=== PATIENT | female | born 1990 | race Asian ===

== ENCOUNTER 2022-09-18 09:34 | Emergency (ER) | payer BC, OTHER ==
[~2022-09-18] VITALS: Ht 167.6 cm; Wt 61.7 kg
--- NOTE | 2022-09-18 09:45 | NUR ---
DR Zayas at the bedside for MSE.
[2022-09-18] MEDS ORDERED: DEXAMETHASONE SOD PHOSPHATE 4 MG INJ IM ONE (10:00)
[2022-09-18] MEDS ORDERED: KETOROLAC TROMETHAMINE 15 MG INJ IM ONE (10:00)
[2022-09-18 10:18] LABS: *URINE HCG, QUAL NEGATIVE (NEGATIVE)
[2022-09-18] MEDS ORDERED: DEXAMETHASONE SOD PHOSPHATE 10 MG INJ ONE (10:22)
[2022-09-18] MEDS ORDERED: KETOROLAC TROMETHAMINE 15 MG INJ ONE (10:22)
[2022-09-18] MEDS ORDERED: AMOX500C2 PO (10:29)
[2022-09-18 10:37] VITALS: BP 113/87; TEMP 97.9; O2SAT 99
--- NOTE | 2022-09-18 10:38 | NUR ---
Patient discharged to home in stable condition. Written and verbal after care instructions given. Patient verbalizes understanding of instructions. Stressed follow up or return to ER for worsening s/s.
== END 2022-09-18 10:38 | disposition home or self-care (01) ==
LOC: ER 09:34
DX: J02.9 Acute pharyngitis, unspecified (principal); Z79.2 Long term (current) use of antibiotics
CPT/HCPCS: 99284; 84703; 86403; 96372 ×2; J1100; J1885; A4663